=== PATIENT | female | born 1975 | race African-American/Black ===

== ENCOUNTER 2018-10-09 12:33 | Day surgery (SDC) | payer OTHER ==
[2018-10-09] MEDS ORDERED: LIDOCAINE 4% SOLUTION 50 ML BTL (13:39)
[2018-10-09] MEDS ORDERED: MIDAZOLAM 1 MG/ML 2 ML INJ ×3 (14:33→14:34)
[2018-10-09] MEDS ORDERED: FENTAnyl 50 MCG/ML VIAL (14:34)
[2018-10-09] MEDS ORDERED: MEPERIDINE 50 MG INJ (14:34)
== END 2018-10-09 16:04 | disposition home or self-care (01) ==
LOC: GIL 12:33
DX: Z12.11 Encounter for screening for malignant neoplasm of colon (principal); K29.70 Gastritis, unspecified, without bleeding; D50.9 Iron deficiency anemia, unspecified; Z87.891 Personal history of nicotine dependence
CPT/HCPCS: 43239; 84703; 88305

== ENCOUNTER 2018-12-14 13:39 | Emergency (ER) | payer OTHER | END 2018-12-14 14:49 | disposition home or self-care (01) | LOC: E/R 13:39 | DX: R59.1 Generalized enlarged lymph nodes (principal); F41.0 Panic disorder [episodic paroxysmal anxiety]; Z87.891 Personal history of nicotine dependence | CPT/HCPCS: 99283-25; Z7502 ==

== ENCOUNTER 2019-04-22 08:33 | Emergency (ER) | payer OTHER ==
[2019-04-22] MEDS: KETOROLAC 60 MG INJ IM (09:31)
== END 2019-04-22 10:34 | disposition home or self-care (01) ==
LOC: FTE 08:33
DX: M54.9 Dorsalgia, unspecified (principal); Z87.891 Personal history of nicotine dependence
CPT/HCPCS: 71045; 81025; 96372; 99284-25

== ENCOUNTER 2019-06-14 16:49 | Emergency (ER) | payer SELFPAY, OTHER | END 2019-06-15 02:59 | disposition left against medical advice (07) | LOC: E/R 16:49 | DX: Z53.21 Procedure and treatment not carried out due to patient leaving prior to being seen by health care provider (principal) | CPT/HCPCS: 93005 ==